=== PATIENT | female | born 1965 | race Caucasian/White ===

== ENCOUNTER → 2016-08-09 | Outpatient (CLI) | payer OTHER ==
[~2016-08-09] MED LIST: DMD20 PO; IBUP-1050 PO; SYN75 PO
== END | disposition home or self-care (01) ==
LOC: C.LAB1850 11:07
PROVIDERS: ATTEND Internal Medicine Endocrinology, Diabetes & Metabolism
DX: E03.9 Hypothyroidism, unspecified (principal)

== ENCOUNTER → 2016-10-18 | Outpatient (CLI) | payer OTHER | END | disposition home or self-care (01) | LOC: C.LAB1850 13:27 | PROVIDERS: ATTEND Internal Medicine Endocrinology, Diabetes & Metabolism | DX: E06.3 Autoimmune thyroiditis (principal); E03.9 Hypothyroidism, unspecified ==

== ENCOUNTER → 2016-12-14 | Outpatient (CLI) | payer OTHER | END | disposition home or self-care (01) | LOC: C.RDSM 10:03 | PROVIDERS: ATTEND Physical Medicine & Rehabilitation Sports Medicine | DX: M25.531 Pain in right wrist (principal) ==

== ENCOUNTER → 2017-05-01 | Outpatient (CLI) | payer OTHER | END | disposition home or self-care (01) | LOC: C.RDSM 13:56 | PROVIDERS: ATTEND Physical Medicine & Rehabilitation Sports Medicine | DX: M79.641 Pain in right hand (principal) ==

== ENCOUNTER → 2017-11-21 | Day surgery (SDC) | payer BC ==
[2017-11-04 13:54] VITALS: Ht 165.1 cm; Wt 63.6 kg
[~2017-11-21] VITALS: Ht 165.1 cm; Wt 63.6 kg
[~2017-11-21] MED LIST changes: +ARMOUR THYROID PO; +BUPIVACAINE/EPINEPHRINE 0.5% MPF 1:200,000 30 ML VIAL ONE; +CEFAZOLIN 1000MG IV PUSH 7.5 ML IV SCH; +DEXAMETHASONE SOD INJ 4 MG/ML VIAL ONE; -DMD20 PO; +FENTANYL CITRATE INJ 50 MCG/1 ML 2 ML VIAL ONE; -IBUP-1050 PO; +LACTATED RINGER'S 1000ML 1,000 ML IV SCH; +LIDOCAINE HCL 2% 2 ML VIAL (20MG/ML) ONE; +LIDOCAINE/EPINEPHRINE 1% 20 ML VIAL ONE; +MIDAZOLAM HCL 1 MG/ML 2ML VIAL ONE; +ONDANSETRON INJ 2 MG/ML 2 ML VIAL ONE; +OXYCODONE HCL IR 5 MG TAB (IMMEDIATE RELEASE) PO PRN; +PROPOFOL IV EMULSION 10 MG/ML 20 ML VIAL ONE; -SYN75 PO; +TORS20TA2 PO
--- NOTE | 2017-11-21 06:36 | History & Physical Bridge Note ---
H&P Re-Evaluation Bridge Note: I have examined the patient, reviewed the History & Physical and in the interval since the performance of the History & Physical I have noted the following changes of clinical significance: No changes noted
--- NOTE | 2017-11-21 07:39 | [facility] Post Operative Brief Note ---
Immediate Operative Summary Operative Date November 21, 2017. Pre-Operative Diagnosis Left Carpal Tunnel Syndrome, Left Long Finger Cyst Post-Operative Diagnosis Same Procedure(s) Performed Left Carpal Tunnel Release And Left Long Finger Cyst Excision Surgeon Dr. Batres Salesperson Pianos And Organs Surgeon(s) Dr. Jacob Cristina, Fellow Estimated Blood Loss 0 Findings Consistent with Post-Op Diagnosis Specimens A. Left Hand Long Finger Cyst Anesthesia Type Local Complication(s) none Disposition Accompanied Pt To Recovery: no Disposition: Recovery Room / PACU
[2017-11-21 07:47] VITALS: TEMP 36.8
--- NOTE | 2017-11-21 07:52 | Discharge Instructions ---
Discharge Instructions Date of Service November 21, 2017. Admission Reason for Admission: Left Carpal Tunnel Syndrome, Left Long Finger Cyst Discharge Discharge Diagnosis / Problem: Left carpal tunnel syndrome, left long finger cyst Discharge Goals Goal(s): Decrease discomfort, Improve function, Increase independence Activity Recommendations Activity Limitations: per Instructions/Follow-up section Lifting Limitations: none, until after follow-up appointment Exercise/Sports Limitations: until after follow-up appointment Shower/Bathe: keep incision dry Weightbearing Status: Left non-weightbearing (protect incisons ) DIET: * Resume previous diet. MEDICATIONS: * Please take your prescriptions as instructed at your pre-op appointment and/ or see medication discharge instructions listed above. * If concerns develop, call your physician's office at . SPECIAL CARE INSTRUCTIONS: * Ice/Elevate as instructed. * Keep dressing clean, dry, intact. * Your surgical extremity may be discolored due to prepping agents used on the skin. A bluish-green tint is a normal variant and should not cause alarm. Call your doctor at [phone] if: * Temperature above 101 degrees * Pain not relieved by pain medicine ordered * There is increased drainage or redness from any incision * You have any unanswered questions, problems or concerns. FOLLOW UP VISIT: * If not already scheduled, please call the office at to schedule a follow-up appointment. . Current Hospital Diet Patient's current hospital diet: Discharge Diet Recommended Diet: Regular Diet Procedures Procedures Performed: Left Carpal Tunnel Release And Left Long Finger Cyst Excision Pending Studies Studies pending at discharge: no Medical Emergencies . Who to Call and When: Medical Emergencies: If at any time you feel your situation is an emergency, please call 911 immediately. . Non-Emergent Contact Non-Emergency issues call your: Primary Care Provider . "Provider Documentation" section prepared by Triston Cristina. . [place] Drug Monitoring Program Search Results: patient reviewed within database, no issues identified
--- NOTE | 2017-11-21 07:54 | [facility] Operative Report ---
Operative Report Operative Date November 21, 2017. Pre-Operative Diagnosis Left Carpal Tunnel Syndrome, Left Long Finger Cyst Post-Operative Diagnosis Same Procedure(s) Performed Left Carpal Tunnel Release And Left Long Finger Cyst Excision Surgeon Dr. Batres Boiler Technician Surgeon(s) Dr. Jacob Cristina, Fellow Estimated Blood Loss 0 Findings Flexor tendon sheath cyst Specimens A. Left Hand Long Finger Cyst Anesthesia Local with IV sedation Complication(s) None Disposition Recovery Room / PACU Indications Patient is a 52-year-old female with left carpal tunnel syndrome and a left long finger volar retinacular cyst. Description of Procedure Informed consent obtained. Preop surgical timeout performed. Preop dose of IV antibiotics given. Patient identified as Elian Taylor. She identified the operative site as the left long finger and left carpal tunnel. I marked with my initials. The examination demonstrated a pea-sized cyst just distal to the MP flexion crease of the long finger. She was positioned supine on the OR table with the left arm on a hand table. Tourniquet applied to the left arm. The limb was prepped and draped in usual sterile fashion. DVT prophylaxis was not necessary. 1% lidocaine and 0.5% Marcaine with epinephrine were injected for a carpal tunnel and digital block. The limb was exsanguinated with the Esmarch. Tourniquet inflated to 225 mmHg. An oblique incision was made centered over the left hand long finger volar retinacular cyst. Blunt dissection was performed in the midline until the cyst was identified. This appeared to be about 3 mm in size a clear outpouching vesicular type lesion from the tendon sheath. It was excised with a square of tendon sheath. The tendon was flexed and extended and looked normal. The lesion was sent for specimen. The wound was irrigated and closed with 4-0 nylon interrupted horizontal mattress stitches. Josue's cardinal line was marked out. The longitudinal palmar crease was utilized. The incision was made and stopped just short of the distal transverse wrist crease. Blunt dissection performed down in the subcutaneous tissues. Superficial palmar fascia was identified and divided in line with the incision. A palmaris brevis muscle was identified and carefully divided. The distal extent of the carpal ligament was identified. The transverse carpal ligament was then divided in line with the incision up into the distal forearm fascia using a knife and tenotomy scissors. The contents of the carpal canal appeared to be normal. Wound was then irrigated with sterile saline and closed with interrupted 4-0 nylon horizontal mattress stitches. A soft sterile dressing was applied. Tourniquet let down after approximately 20 minutes of inflation. There were no complications. Specimens were as mentioned above. Counts were correct in the case. Blood loss was minimal. At the conclusion of the operation spoke to patient's and informed him of my findings. Detailed postoperative instructions were given. The incision was about 4 cm in length. She will be rehabilitated according to the carpal tunnel protocol. I attest to the content of the Intraoperative Record and any orders documented therein. Any exceptions are noted below.
--- NOTE | 2017-11-21 08:07 | Anesthesia Progress Nt - [facility] ---
Anesthesia Post Op Note Date & Time November 21, 2017 at 08:07 Vital Signs Pain Intensity: 0 Vital Signs Past 12 Hours Date Time Temp Pulse Resp B/P (MAP) Pulse Ox O2 Delivery O2 Flow Rate FiO2 11/21/17 07:47 36.8 72 16 117/72 (87) 94 Room Air 11/21/17 06:24 36.4 82 16 128/81 (97) 95 Room Air Notes Mental Status: alert / awake / arousable, participated in evaluation Pt Amnestic to Procedure: Yes Nausea / Vomiting: adequately controlled Pain: adequately controlled Airway Patency, RR, SpO2: stable & adequate BP & HR: stable & adequate Hydration State: stable & adequate Anesthetic Complications: no major complications apparent
[2017-11-21 08:11] VITALS: BP 125/72; PULSE 65; O2SAT 95
== END | disposition home or self-care (01) ==
LOC: X.SURG 06:08
PROVIDERS: ATTEND Physical Medicine & Rehabilitation Sports Medicine
DX: G56.02 Carpal tunnel syndrome, left upper limb (principal); L98.8 Other specified disorders of the skin and subcutaneous tissue; Z98.890 Other specified postprocedural states; Z87.891 Personal history of nicotine dependence